=== PATIENT | female | born 1980 | race Caucasian/White ===

== ENCOUNTER → 2016-07-28 | Outpatient (CLI) | payer BC ==
[~2016-07-28] MED LIST: ASTN; FEXO1TAB58 PO; FLUT0.0529
[2016-07-28 14:55] LABS: ALT/SGPT 24 U/L (12-78); AST/SGOT 15 U/L (15-37); BLOOD UREA NITROGEN 10 mg/dl (7-18); BUN/CREATININE RATIO 12.9 (10-20); CALCIUM 8.9 mg/dl (8.5-10.1); CARBON DIOXIDE 31 mmol/L (21-32); CHLORIDE 104 mmol/L (98-107); CREATININE 0.78 mg/dl (0.60-1.20); GLUCOSE 77 mg/dl (70-99); POTASSIUM 3.9 mmol/L (3.5-5.1); SODIUM 140 mmol/L (136-145)
[2016-07-28 14:58] LABS: ALB/GLOB RATIO 1.2 (0.9-2); ALKALINE PHOSPHATASE 95 U/L (45-117)
[2016-07-28 15:20] LABS: LYME DISEASE AB IGG NEG (NEG)
[2016-07-28 15:22] LABS: LYME DISEASE AB IGM NEG (NEG)
[2016-07-31 13:35] LABS: ANAPLASMA PHAGOCYTOPHIL IGG <1:64 (<1:64); ANAPLASMA PHAGOCYTOPHIL IGM <1:20 (<1:20)
== END | disposition home or self-care (01) ==
LOC: C.LAB1850 12:46
PROVIDERS: ATTEND Nurse Practitioner Adult Health
DX: M79.1 Myalgia (principal); B34.9 Viral infection, unspecified; R53.83 Other fatigue

== ENCOUNTER → 2017-06-27 | Outpatient (CLI) | payer OTHER, BC ==
--- NOTE | 2017-06-27 13:23 | DIAGNOSTIC IMAGING REPORT ---
LUMBAR SPINE MIN 4 VIEWS CLINICAL HISTORY: 37 years-old Female presenting with LOW BACK PAIN WITH RADIATION INTO LEFT LEG. TECHNIQUE: Frontal, bilateral oblique, lateral, and coned in lateral views of the lumbar spine were obtained. COMPARISON: None. FINDINGS: No scoliosis. Normal lumbar lordosis. Vertebral bodies maintain normal height and alignment. Intervertebral disc spaces preserved. No degenerative change. No compression deformity. No subluxation. No radiographic evidence of osseous neural foraminal narrowing. No pars defect. IMPRESSION: Normal radiographic examination of the lumbar spine. Electronically signed by: Vel Gaytan M.D. 06/27/2017 1:22 PM Dictated Date/Time: 06/27/2017 1:21 PM
== END | disposition home or self-care (01) ==
LOC: C.RDSM 17:21
PROVIDERS: ATTEND Family Medicine
DX: M54.5 Low back pain (principal)

== ENCOUNTER → 2017-08-02 | Outpatient (CLI) | payer OTHER, BC ==
--- NOTE | 2017-08-02 08:55 | DIAGNOSTIC IMAGING REPORT ---
LEFT FOOT 3 VIEWS HISTORY: M79.672 Left foot pain. COMPARISON: None. FINDINGS: There is no fracture or dislocation. Soft tissues are unremarkable. No radiopaque foreign bodies. Small plantar and posterior calcaneal spurs. IMPRESSION: No fractures. Electronically signed by: Gianni Ramírez M.D. 08/02/2017 8:54 AM Dictated Date/Time: 08/02/2017 8:51 AM
[2017-08-02 10:16] LABS: URIC ACID 3.2 mg/dl (2.6-7.2)
[2017-08-03 14:47] LABS: ANA SCREEN TC 249X POSITIVE (NEGATIVE)
== END | disposition home or self-care (01) ==
LOC: C.RAD 07:49
PROVIDERS: ATTEND Nurse Practitioner Family
DX: M79.672 Pain in left foot (principal)

== ENCOUNTER → 2017-09-12 | Outpatient (CLI) | payer OTHER, BC ==
--- NOTE | 2017-09-12 10:07 | DIAGNOSTIC IMAGING REPORT ---
R HAND MIN 3 VIEWS ROUTINE CLINICAL HISTORY: 37 years-old Female presenting with pain. TECHNIQUE: Frontal, oblique, and lateral views of the right hand were obtained. COMPARISON: None. FINDINGS: No acute fracture or malalignment. No advanced degenerative change. No radiographic soft tissue abnormality. IMPRESSION: No acute osseous injury. Electronically signed by: Vel Gaytan M.D. 09/12/2017 10:06 AM Dictated Date/Time: 09/12/2017 10:05 AM
--- NOTE | 2017-09-12 10:12 | DIAGNOSTIC IMAGING REPORT ---
LEFT HAND 3 VIEWS CLINICAL HISTORY: Left hand pain. FINDINGS: 3 views of the left hand are obtained. No prior studies are available for comparison at the time of dictation. The skeletal structures are well mineralized. No fracture is seen. The joint spaces of the hand are well-maintained. No erosive disease is identified. The overlying soft tissues are within normal limits. IMPRESSION: Unremarkable radiographic assessment of the left hand. Electronically signed by: Bart Cuellar M.D. 09/12/2017 10:11 AM Dictated Date/Time: 09/12/2017 10:07 AM
== END | disposition home or self-care (01) ==
LOC: C.RAD1850 09:41
PROVIDERS: ATTEND Internal Medicine Rheumatology
DX: M77.41 Metatarsalgia, right foot (principal); M79.672 Pain in left foot; R76.8 Other specified abnormal immunological findings in serum

== ENCOUNTER → 2017-11-17 | Outpatient (CLI) | payer OTHER, BC ==
--- NOTE | 2017-11-17 09:07 | DIAGNOSTIC IMAGING REPORT ---
L FOOT MIN 3 VIEWS ROUTINE CLINICAL HISTORY: Tibial sesamoid pain. COMPARISON: Left foot radiograph August 02, 2017. FINDINGS: No fracture within the left foot is identified. Tarsometatarsal joints are intact. There may be slight asymmetric sclerosis of the tibial sesamoid of the left great toe. IMPRESSION: Possible slight asymmetric sclerosis of the tibial sesamoid of the left great toe which raises the possibility of sesamoiditis. Electronically signed by: Jim Perez M.D. 11/17/2017 9:06 AM Dictated Date/Time: 11/17/2017 9:00 AM
== END | disposition home or self-care (01) ==
LOC: C.RAD 08:27
PROVIDERS: ATTEND Podiatrist Foot & Ankle Surgery
DX: M79.672 Pain in left foot (principal)

== ENCOUNTER 2023-07-05 05:37 | Observation (INO) ==
--- NOTE | 2023-06-02 11:45 | PAT Medication Instructions ---
Medication Instructions Date of Service June 02, 2023 Home Medications Medication Instructions Recorded albuterol sulfate 90 mcg/actuation 1 puff inhalation Q4H PRN sob #6.7 04/28/21 aerosol inhaler grams albuterol sulfate 90 mcg/actuation aerosol inhaler 1 puff inhalation Q4H PRN sob duloxetine 60 mg capsule,delayed release 60 mg PO QAM Plexus 1 dose PO UD buspirone 10 mg tablet 10 mg PO BID ipratropium bromide 21 mcg (0.03 %) nasal spray 2 spray intranasal TID PRN sinus congestion STOP taking 2 weeks before surgery Plexus 1 dose PO UD Take morning of surgery With a small sip of water, OTHERWISE NOTHING TO EAT OR DRINK AFTER MIDNIGHT: albuterol sulfate 90 mcg/actuation aerosol inhaler 1 puff inhalation Q4H PRN sob (use if needed; please bring with you to hospital day of surgery if possible) duloxetine 60 mg capsule,delayed release 60 mg PO QAM buspirone 10 mg tablet 10 mg PO BID ipratropium bromide 21 mcg (0.03 %) nasal spray 2 spray intranasal TID PRN sinus congestion (if needed) Take evening before surgery albuterol sulfate 90 mcg/actuation aerosol inhaler 1 puff inhalation Q4H PRN sob (if needed) buspirone 10 mg tablet 10 mg PO BID ipratropium bromide 21 mcg (0.03 %) nasal spray 2 spray intranasal TID PRN sinus congestion (if needed) Other Notes If you have any questions please call us at [phone] or [phone] or [phone] or [phone]
--- NOTE | 2023-06-08 10:24 | Anesthesiology Consultation ---
Date of Service June 08, 2023 Assessment & Plan (1) Encounter for pre-operative examination: - Infectious disease screening: Per assessment on 06/08/23: No known infectious disease contacts or current infectious disease symptoms. No noted recent Covid positive test result. - S/P Left shoulder arthroscopy, labral debridement, clavicle excision (03/26/23): Grade 2 view, MAC#3, ETT 7.5 + regional at [facility] MH precautions used - Family history malignant hyperthermia: Maternal aunt and first cousin have RYR1 malignant hyperthermia susceptibility (incidental finding thru genetic testing, they did not have personal reactions). Patient has never personally been tested. MH precautions used for patient with previous surgeries. > OR made aware of need for MH precautions for upcoming surgery. - Patient scheduled to see PCP prior to upcoming surgery for routine visit- Awaiting office visit note ([facility], appt 06/29). Patient otherwise acceptable risk for surgery. Chart Review Chart Review: Patient seen in Pre Admission Testing Teaching & Discussion Pre-Anesthesia Teaching/Discussion Notes: Instructed NPO after midnight before surgery,except medications with 15 cc of water. Medication instructions provide d according to the PAT guidelines. History Surgery Operation Date: 07/05/23 10:35 Proposed Procedures p C6-C7 Cervical Disc Arthroplasty - Mark Graham MD Height/Weight Height: 5 ft 7 in Weight: 66.6 kg Allergies Allergy/AdvReac Type Severity Reaction Status Date / Time dexamethasone Allergy Severe Hives Verified 06/02/23 07:41 methylprednisolone Allergy Severe Hives Verified 06/02/23 07:41 prednisone Allergy Severe Anaphylaxis Verified 06/06/23 21:32 levofloxacin [From Levaquin] Allergy Unknown Unknown Verified 06/02/23 07:41 Sulfa (Sulfonamide Allergy Unknown Hives Verified 06/06/23 21:32 Antibiotics) Medications Home Medications Medication Instructions Recorded Confirmed Last Taken albuterol sulfate 90 mcg/actuation 1 puff inhalation Q4H PRN sob #6.7 04/28/21 06/02/23 Unknown aerosol inhaler grams duloxetine 60 mg capsule,delayed 60 mg PO QAM 02/04/22 06/02/23 03/28/23 07:15 release Plexus 1 dose PO UD 06/02/23 06/02/23 Unknown buspirone 10 mg tablet 10 mg PO BID 06/02/23 06/02/23 Unknown ipratropium bromide 21 mcg (0.03 2 spray intranasal TID PRN sinus 06/02/23 06/02/23 Unknown %) nasal spray congestion Past Medical History Medical History Allergy Asthma Chronic thoracic back pain Depression History of COVID-19 ~2020: moderate flu-like symptoms, severe aches, severe fatigue > resolved Hx of colonic polyp Polyarthralgia Raynaud's phenomenon Exercise / Class Metabolic Activity II 4-5 Yardwork/Stairs/Walk up hill (one FS- no CP, no SOB) Past Family History Family History Grandfather (Maternal) Myocardial infarction Grandmother (Maternal) Myocardial infarction Father Allergic rhinitis Hypertension Grandmother (Paternal) Hypertension Mother Osteopenia Family/Other Family hx of colon cancer, Onset Age: 50 cousin Aunt Genetic susceptibility to malignant hyperthermia due to RYR1 gene mutation Maternal aunt and first cousin have RYR1 malignant hyperthermia susceptibility (incidental finding thru genetic testing, they did not have personal reactions). Patient has never personally been tested. MH precautions used for patient with previous surgeries. Denies family history of Ovarian cancer Prostate cancer Breast cancer Colorectal cancer Past Surgical History Surgical History Family history of malignant hyperthermia Maternal aunt and first cousin have RYR1 malignant hyperthermia susceptibility (incidental finding thru genetic testing, they did not have personal reactions). Patient has never personally been tested. MH precautions used for patient with previous surgeries. History of bilateral tubal ligation BTL vs bilateral salpingectomy -> tbd 06/09/23 at [facility] History of colonoscopy History of cryosurgery cervix S/P arthroscopy of shoulder Left shoulder arthroscopy, labral debridement, clavicle excision (03/26/23): Grade 2 view, MAC#3, ETT 7.5 + regional at [facility] MH precautions used S/P endometrial ablation tbd 06/09/23 at [facility] S/P LASIK surgery PRK S/P wisdom tooth extraction History of PONV No Hx of PONV and No Hx of Motion Sickness Social History Smoking Status: Never smoker Do You Dip or Chew Tobacco: No Hx Alcohol Use: Yes alcohol intake frequency: a few times a month Hx Substance Use: No substance use type: does not use Review of Systems Patient denies chest pain, shortness of breath, dyspnea on exertion, fever, chills, cough, wheezing, palpitations. Physical Exam Vital Signs VITALS BP 117/74 P 87 TEMP 98.0 SP02 97%RA RESP 18 PHYSICAL Full cervical extension range of motion. Full TMJ range of motion. TMD 3 finger breaths Mallampati Score 1 Dentition: intact Lungs: clear throughout to auscultation Cardiac: regular rate and rhythm, no murmurs noted Spine: normal Extremities: no LE edema Lab Results Anesthesia Preop Results Results Anesthesia Widget: WBC 4.16 K/ul (4.8-10.8) L 06/08/23 Hgb 13.0 g/dl (12.0-16.0) 06/08/23 Hct 39.0 % (37.0-47.0) 06/08/23 Plt 351 K/uL (130-400) 06/08/23 PT 10.9 Seconds (9.0-12.0) 06/08/23 PTT 28 Seconds (21-31) 06/08/23 INR 1.0 (0.9-1.1) 06/08/23 Blood Type O Negative 06/08/23 Antibody Screen NEGATIVE 06/08/23 Testing Laboratory Results *Surgeon's office made aware of low WBC* Electrocardiogram Date: 06/08/23 NSR at 83bpm. NS STA.
[2023-07-05] MEDS: LR 60ML/HR IV SCH (06:16)
[2023-07-05] MEDS: LR 15ML/HR IV SCH (06:16)
[2023-07-05] MEDS ORDERED: HYDROmorphone INJ 2 MG/ML SYR/VIAL IV PRN (06:45)
[2023-07-05] MEDS ORDERED: ePHEDrine sulfate 50 MG/ML AMP IV PRN (06:45)
[2023-07-05] MEDS ORDERED: ONDANSETRON INJ 2 MG/ML 2 ML VIAL IV PRN ×2 (06:45→11:45)
[2023-07-05] MEDS ORDERED: ATROPINE SULFATE 0.1 MG/ML 10ML SYR IV PRN (06:45)
[2023-07-05] MEDS ORDERED: DROPERIDOL 5 MG/2 ML VIAL IV PRN (06:45)
[2023-07-05] MEDS ORDERED: fentaNYL citrate PF 100 MCG/2 ML VIAL IV PRN (06:45)
[2023-07-05] MEDS ORDERED: fentaNYL citrate PF 100 MCG/2 ML VIAL ONE ×3 (06:51→09:48)
[2023-07-05] MEDS ORDERED: MIDAZOLAM HCL 1 MG/ML 2ML VIAL ONE ×2 (06:51→08:08)
[2023-07-05] MEDS ORDERED: PROPOFOL IV EMULSION 10 MG/ML 100 ML VIAL IV ONE (06:54)
--- NOTE | 2023-07-05 07:24 | History & Physical Bridge Note ---
Date of Service July 05, 2023 History & Physical Bridge Note I have examined the patient, reviewed the History & Physical and in the interval since the performance of the History & Physical I have noted the following changes of clinical significance: no changes noted
[2023-07-05] MEDS ORDERED: LIDOCAINE 2% 2 ML VIAL/AMP(20MG/ML) INFIL ONE (08:00)
[2023-07-05] MEDS ORDERED: PHENYLEPHRINE 100MCG/ML 10ML SYR IV ONE (08:00)
[2023-07-05] MEDS ORDERED: ROCURONIUM BROMIDE 10 MG/ML 5 ML VIAL IV ONE ×2 (08:00→08:29)
[2023-07-05] MEDS ORDERED: PROPOFOL IV EMULSION 10 MG/ML 20 ML VIAL IV ONE (08:00)
[2023-07-05] MEDS ORDERED: ONDANSETRON INJ 2 MG/ML 2 ML VIAL ONE (08:00)
[2023-07-05] MEDS ORDERED: SUGAMMADEX SODIUM 200 MG/2 ML VIAL IV ONE (08:00)
[2023-07-05] MEDS: ceFAZolin 3000MG 3,000 MG/72.5 ML BAG IV SCH (08:39)
[2023-07-05] MEDS: THROMBIN 5000 UNITS KIT ONE (08:48)
[2023-07-05] MEDS: GELATIN SPONGE 12-7MM ONE (08:55)
--- OUTSIDE RECORDS SUMMARY | 2023-07-05 09:41 | External Medical Summary | Summary of Care ---
Author Name Unknown Organization [facility] Address [address] [facility] [place] [address] Phone [phone] Care Team Providers Care Classroom Monitor Name Role Phone Estrella Elizabeth MD Primary Care Provider Encounter Details Date Type Department Care Team (Late st Contact Info) Description 06/30/2023 Orders Only [facility] [address] [place] [id number] Lavinia Lopez CRNP [address] [place] [address] Allergies Active Allergy Reactions Criticality Noted Date Comments Amoxicillin Diarrhea,Nausea/vomiting 05/18/2011 Dexamethasone 05/21/2022 Methylprednisolone 05/21/2022 Prednisone 01/30/2007 Throat tightness Sulfa Antibiotics High 07/31/2001 rash documented as of this encounter (statuses as of 06/30/2023) Medications Medication Sig Dispensed Refills Start Date End Date Status oxyCODONE-Acetamin ophen 5-325 MG Oral Tablet (Percocet) Take 1 Tablet by mouth every 4 hours as needed for breakthrough Pain 20 Tablet 0 06/09/2023 Active Ibuprofen 600 MG Oral Tablet (Motrin) Take 1 Tablet by mouth in the morning and 1 Tablet at noon and 1 Tablet before bedtime. With meals.. 30 Tablet 0 06/09/2023 Active busPIRone HCl 10 MG Oral Tablet (Buspar) 0 06/13/2023 Active Diclofenac Sodium 75 MG Oral Tablet Delayed Release (Voltaren) Take 1 Tablet by mouth in the morning and 1 Tablet before bedtime. 0 Active DULoxetine HCl 60 MG Oral Capsule Delayed Release Particles (Cymbalta) Take 1 Capsule by mouth in the morning. 0 Active traZODone 12.5 MG OR TABS Take 5 mg by mouth every night at bedtime. 0 Active Estradiol 0.05 MG/24HR Transdermal Patch Twice Weekly Apply one patch to trunk, abdomen or buttocks, change twice per week. 24 Patch 1 06/28/2023 Active Progesterone 200 MG Oral Capsule (Prometrium) Take 1 Capsule by mouth every night at bedtime. 90 Capsule 1 06/28/2023 Active documented as of this encounter (statuses as of 06/30/2023) Active Problems Problem Noted Date Diagnosed Date Raynaud's disease without gangrene 09/22/2022 Generalized osteoarthritis 09/22/2022 Nonallergic rhinitis 02/20/2015 Mild persistent asthma 11/15/2014 Headache 07/03/2013 Overview: ICD-10 update of inactive term Allergic rhinitis 05/18/2011 Recurrent acute sinusitis 05/18/2011 Dysfunction of eustachian tube 05/18/2011 Postnasal drip 05/18/2011 BENIGN NEOPLASM LG BOWEL 11/16/2005 ADVANCE DIRECTIVE INFORMATION 05/01/2005 Overview: No, Advance Directive brochure offered , patient declined. Migraine variant 02/11/2004 Dysmenorrhea Irritable bowel syndrome documented as of this encounter (statuses as of 06/30/2023) Resolved Problems Problem Noted Date Diagnosed Date Resolved Date Intermittent asthma with rel iever use up to twice per week 05/18/2011 11/15/2014 Normal , first 02/26/200904/26 Overview: Patient received H1N1 vaccine. 02/26/2009 Vero Vaz RN Rh negative, antepartum 01/31/200912/25 Overview: Negative bloodtype, rhogam with spotting and at 28 weeks ICD-10 update of inactive term Other allergic rhinitis 05/01/200504/26 Overview: ICD-10 update of inactive term Asthma with severity to be determined 04/05/2005 05/18/2011 Overview: ICD-10 update of inactive term Chronic rhinitis 02/11/2004 05/18/2011 documented as of this encounter (statuses as of 06/30/2023) Immunizations Name Administration Dates Next Due COVID-19 mRNA, LNP-s, No Pre serve, 2-Dose Series (Pfizer) 04/23/2021,10/22/2020,09/24/2020 H1N1 2009 Influenza, IM 02/26/2009 Pneumococcal Polysaccharide PPV23 (Pneumovax) 12/27/2008(Deferred: Patient Refused) Seasonal Influenza, Split, I IV3, With Preserve, Inj 02/07/2016,01/23/2009 TDAP (age 11 and older)(Adacel) 12/27/2008(Defer red: Patient Refused) documented as of this encounter Social History Tobacco Use Types Packs/Day Years Used Date Smoking Tobacco: Never Smokeless Tobacco: Never Comments:no passive smoke Alcohol Use Standard Drinks/Week Comments No 0 (1 standard drink = 0.6 oz pur e alcohol) rare Hunger Vital Sign Answer Date Recorded Within the past 12 months, y ou worried that your food would run out before you got the money to buy more. Never true 01/18/20 23 Within the past 12 months, t he food you bought just didn't last and you didn't have money to get more. Never true 01/17/2023 Sex and Gender Information Value Date Recorded Sex Assigned at Female 08/10/2021 2:56 PM EDT Gender Identity Female 08/10/2021 2:56 PM EDT Sexual Orientation Straight 08/10/2021 2: 56 PM EDT Job Start Date Occupation Industry Not on file Not on file Not on file documented as of this encounter Plan of Treatment Upcoming Encounters Date Type Department Care Team (Late st Contact Info) Description 09/16/2023 11:00 AM EDT Telemedicine Gynecology/Obstetrics Bernard[facility] Samuels [address] [place] [address] Lavinia Lopez CRNP [address] [place] [id number] 09/23/2023 3:20 PM EDT Office Visit Rheumatology [facility] [address] [place], [place] [address] Milton Wills MD [address] [employer] [place] [address] Health Maintenance Due Date Last Done Comments Lipid Panel 1978 Pneumococcal Vaccine: Pediatrics (0 to 5 Years) and At-Risk Patients (6 to 64 Years) (1 of 2 - PCV) 01/22/1984 Depression Screening 1990 Hepatitis C Screening 01/22/1996 DTaP,Tdap,and Td Vaccines (1 - Tdap) 1997 Hepatitis B (1 of 3 - 19+ 3-dose series) 1997 HPV/Co-Test 01/22/2008 Cervical Cancer Screening 02/27/2012 Pap Smear 02/27/2012 02/26/2009, 04/26, 05/18/2007, Additional history exists Mammogram 2018 06/30/2023 COVID-19 Vaccine ( season) 2022 04/23/2021, 10/22/2020, 10/01/2020, Additional history exists Influenza Vaccine (FLU shot) (#1) 2022 02/07/2016, 02/26/2009, 01/23/2009 Cologuard 2023 Colonoscopy 2023 Colorectal Cancer Screening 2023 Fecal Occult Blood Test 2023 Sigmoidoscopy 2023 GARDASIL-HPV IMMUNIZATION SERIES Aged Out No longer eligible based on patient's age to complete this topic MENINGOCOCCAL (MENACTRA/MENVEO) Aged Out No longer eligible based on patient's age to complete this topic documented as of this encounter Medical Devices Not on filedocumented as of this encounter Procedures Procedure Name Priority Date/Time Associated Diagnosis Comments MAMMOGRAM SCREENING SHAHRIAR BILATERAL Routine 06/30/2023 documented in this encounter Results * MAMMOGRAM SCREENING SHAHRIAR BILATERAL (06/30/2023) Anatomical Region Laterality Modality Breast Bilateral Other 06/30/2023 History Per Patient RAD MAMMOGRAPHY documented in this encounter Care Teams Classroom Monitor Relationship Specialty Start Date End Date Estrella Elizabeth MD [address] [place] [address] PCP - General Family Medicine 07/15/16 documented as of this encounter
[2023-07-05] MEDS: VANCOMYCIN HCL 1000MG/20ML VIAL ONE (11:06)
--- NOTE | 2023-07-05 11:42 | Post Operative Brief Note ---
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
[2023-07-05] MEDS ORDERED: METOCLOPRAMIDE HCL INJ 5 MG/ML 2 ML VIAL IV PRN (11:45)
[2023-07-05] MEDS ORDERED: bisacodyL 10 MG SUPP PR PRN (11:45)
[2023-07-05] MEDS ORDERED: hydrOXYzine HCl 25 MG TAB PO PRN (11:45)
[2023-07-05] MEDS ORDERED: DO NOT ADMINISTER PNEUMOCOCCAL VACCINE PRN (11:45)
[2023-07-05] MEDS ORDERED: ACETAMINOPHEN 1,000 MG/100 ML VIAL IV PRN (11:45)
[2023-07-05] MEDS ORDERED: DO NOT ADMINISTER FLU VACCINE PRN (11:45)
[2023-07-05] MEDS ORDERED: ONDANSETRON 4 MG OD TAB PO PRN (11:45)
[2023-07-05] MEDS ORDERED: FAMOTIDINE 20 MG TAB PO PRN (11:45)
[2023-07-05] MEDS ORDERED: oxyCODONE/ACETAMINOPHEN 5mg/325mg TAB PO PRN (11:45)
[2023-07-05] MEDS ORDERED: LORazepam 0.5 MG TAB PO PRN (11:45)
[2023-07-05] MEDS ORDERED: PROMETHAZINE HCL 12.5 MG in SODIUM CHLORIDE 0.9% 50 ML IV PRN (11:45)
[2023-07-05] MEDS ORDERED: diphenhydrAMINE Capsule 25 MG CAP PO PRN (11:45)
[2023-07-05] MEDS ORDERED: NALOXONE HCL 0.4 MG/1 ML VIAL/CARP IV PRN (11:45)
[2023-07-05] MEDS ORDERED: SOD PHOSPHATE/SOD BIPHOSPHATE ENEMA 132 ML BTL PR PRN (11:45)
[2023-07-05] MEDS ORDERED: LORazepam 0.5 MG in SYRINGE 0.25 ML IV PRN (11:45)
[2023-07-05] MEDS ORDERED: RACEPINEPHRINE 2.25% NEBU SOLN 0.5 ML VIAL INH PRN (11:45)
[2023-07-05] MEDS ORDERED: dexAMETHasone 8 MG in SYRINGE 0 ML IV PRN (11:45)
[2023-07-05] MEDS ORDERED: ALUMINUM/MAGNESIUM SUSP 30 ML UDC PO PRN (11:45)
[2023-07-05] MEDS ORDERED: MAGNESIUM HYDROXIDE SUSP 30 ML UDC PO PRN (11:45)
--- NOTE | 2023-07-05 13:05 | Fluoroscopy Report ---
FL cervical 2-3V CLINICAL HISTORY: C6-C7 cervical disc arthroplasty COMPARISON STUDY: Cervical spine radiographs 06/16/2023 FLUOROSCOPY TIME: 154.5 seconds FLUOROSCOPY IMAGES: 23 EXPOSURE DOSE: 39.87 mGy FINDINGS: Endotracheal tube is noted. Discectomy changes are noted at what is labeled the C6-C7 level . No acute fracture, malalignment or unexpected opaque foreign body identified. Mild multilevel spond ylotic spurring of the cervical spine. IMPRESSION: Fluoroscopic assistance as above. ACT 112: Negative or not required by law. Electronically signed by: Juan M Smith M.D. 07/05/2023 1:04 PM
[2023-07-05] MEDS ORDERED: ALBUTEROL HFA 8 GM INHALER INH PRN (13:25)
[2023-07-05] MEDS ORDERED: PLEXUS PO SCH (13:25)
[2023-07-05] MEDS: SCOPOLAMINE 1 MG TDSY TD ONE (13:42)
[2023-07-05] MEDS: FLOSEAL HEMOSTATIC MATRIX 5ML TOP ONE (13:43)
[2023-07-05] MEDS: LACTATED RINGER'S 1,000 ML IV SCH (13:45)
[2023-07-05] MEDS: ACETAMINOPHEN 500 MG TAB PO PRN (16:03)
[2023-07-05] MEDS: ceFAZolin 1000MG 1,000 MG/7.5 ML SYR IV SCH (18:08)
[2023-07-05] MEDS: DOCUSATE SODIUM/SENNA 50/8.6MG TAB PO SCH (20:07)
[2023-07-05] MEDS: busPIRone 15 MG TAB PO SCH (20:07)
[2023-07-05] MEDS: MONTELUKAST SODIUM 10 MG TABLET PO SCH (20:07)
[2023-07-06] MEDS: HYDROmorphone INJ 0.5 MG/0.5 ML SYR IV PRN (02:37)
[2023-07-06] MEDS: POLYETHYLENE (MIRALAX) 17 GM PACK PO SCH (05:50)
[2023-07-06] MEDS: DULoxetine HCL 60 MG CAP PO SCH (08:32)
--- NOTE | 2023-07-06 10:03 | Orthopedic Progress Note ---
Date of Service July 06, 2023 Assessment & Plan (1) Status post cervical disc replacement: Patient was seen and evaluated today by Dr. Graham. Overall, she is doing quite well today with good pain control. She will be seen by physical therapy later this morning to work on range of motion exercises. She can be discharged home later this morning pending physical therapy evaluation. She will follow-up with Dr. Graham in 2 weeks for postoperative management. Pt seen and examined, has improvement in left arm symptom, DC home today. Subjective . Carmelita was seen and evaluated this morning resting comfortably at bedside in no apparent distress. She notes that her neck is mildly sore but overall doing well. She has been up and out of bed with no significant issues. She has yet to work with physical therapy this morning. She denies any other concerns today. Review of Systems All systems reviewed & are unremarkable except as noted in HPI & below. Physical Exam . On physical examination of the cervical spine/neck dressing is in place, clean, dry and intact. Normal motor and sensation intact bilaterally to the upper extremity. +2 radial pulse. Less than 2-second capillary refill. Normal sensation. Neurovascular intact. Results & Data Results & Data Laboratory Results . Diagnostic Findings . PG Care Time/CCT Total # of Minutes Spent Total Time Spent with Patient: Total time spent is greater than 50% in coordination of care (as documented) at patient's floor/unit and/or counseling patient: Coding Level of Care Code 92262 Post Operative Follow-Up Diagnoses Status post cervical disc replacement Z98.890
--- NOTE | 2023-07-06 10:06 | Discharge Summary ---
Date of Service July 06, 2023 Principal Diagnosis Same as "Discharge Diagnosis" noted below under Discharge Instructions. Discharge Exam . On physical examination of the cervical spine/neck dressing is in place, clean, dry and intact. Normal motor and sensation intact bilaterally to the upper extremity. +2 radial pulse. Less than 2-second capillary refill. Normal sensation. Neurovascular intact. Discharge Data Procedures Performed Operation Date: 07/05/23 07:15 Actual Procedures p C6-C7 Cervical Disc Arthroplasty - Mark Graham MD Ordered Studies 07/05/23 07:00 FL cervical 2-3V Routine Hospital Course (1) Status post cervical disc replacement: On 07/05/2023, Carmelita arrived at [facility] and underwent a C6-C7 cervical disc arthroplasty performed by Dr. Graham with no complications. She had a general anesthetic. Postoperatively, she was transferred to the PACU for immediate postoperative management and then transferred to the general orthopedic floor in stable condition. Her hospital course was uneventful. On postoperative day 1, her vital signs were stable and her pain was well- controlled. She participated well with physical therapy working on range of motion exercises. She was then discharged home in stable condition. She will follow-up with Dr. Graham in 2 weeks for postoperative management. PG Care Time/CCT Total # of Minutes Spent Total Time Spent with Patient: Total time spent is greater than 50% in coordination of care (as documented) at patient's floor/unit and/or counseling patient: Discharge Plan Discharge Items Patient Disposition: Home - Self-Care Reason For Visit: Level C6-C7 Disorder of Intervertebral Disc with R Discharge Diagnosis: Same Activity: Per Instructions section Non-emergency contact: Surgeon Call non-emergency contact if: your temperature is above 101.5, your wound has increased redness, your wound has increased drainage and your wound pain has increased Follow-up/Referrals: Gio Fajardo III, CRNP [Primary Care Provider] - Diet: Regular Addtl Attending Provider Instructions: Please follow Dr. Graham Post Operative Instructions that were given in the office upon scheduling surgery. -Dressings will be changed prior to discharge. -Keep Surgical site dry for the next 3 days. -May shower after 3 days with no soaking of the surgical site -May leave surgical site open to air if dry. -Cover the surgical site with a bandage if draining or getting caught on clothes. -Take it easy for the next 2 weeks. (Ex: No Lifting, running, bending, or twisting, etc.). -You will F/u with Dr. Graham in 2 weeks for postoperative care. -If any questions or concerns in the mean time, Reach out to [facility] at [phone] Pending Studies at Discharge: No Stand-Alone Forms: My [facility] [employer] Pain - Opioid Pain Management, Smoking Cessation Medications and DC Order Prescriptions: New oxycodone 5 mg tablet 5 mg PO Q6H PRN (Reason: pain) Qty: 28 0RF Continued duloxetine 60 mg capsule,delayed release(DR/EC) 60 mg PO QAM albuterol sulfate 90 mcg/actuation HFA aerosol inhaler 1 puff INH Q4H PRN (Reason: sob) Qty: 6.7 5RF buspirone 15 mg tablet 15 mg PO BID Qty: 180 3RF montelukast [Singulair] 10 mg tablet 10 mg PO QPM Qty: 90 3RF Plexus 1 dose PO UD ipratropium bromide 21 mcg (0.03 %) spray,non-aerosol 2 spray intranasal TID PRN (Reason: sinus congestion) Rx Instructions: administer into each nostril Discharge Orders: Discharge Order (Routine); Ordered 07/06/23 Ordered By: Juan M Osorio/Other Patient Handouts: Cervical Spine Tx Admission Data Admit Date/Time: 07/05/23 11:45 Attending Provider: Mark Graham Admit Provider: Mark Graham Primary Care Provider: Gio Fajardo III Other Interventions: Discharge Summary Assessment (RN) Last Done: 07/06/23 09:29
--- NOTE | 2023-07-06 11:44 | Operative Report ---
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 C6-7 anterior cervical decompression, artificial disc replacement, Moby C 15 x 17 x 5 mm ([id number]) Patient was taken to the operating room and after adequate anesthesia was carefully positioned supine on the OSI flat top table. Positioning was then performed along with a preprepped of the anterior cervical region, fluoroscopy was brought in and I marked for the location for the incision. Prep and drape was performed, I began the procedure with a left-sided approach to C6-7, advanced down along the medial border of the sternocleidomastoid, and then down onto the anterior aspect of the cervical spine. Position was then confirmed fluoroscopically, and I then mobilized the tissues at C6 and C7 to then insert the distractor pins under fluoroscopic control. With the pins in place, I then set the retractors and then began the procedure with an anterior incision of the annulus followed by a thorough discectomy. This included removal of cartilage from the endplates, the disc material out to the uncinates on both sides to the posterior aspect of the interspace. I then was able to mobilize and elevate the disc space to his improved height, I used a high-speed bur to move along the posterior aspect of the spondylosis. Combination of curettes and Kerrison punches were then used to mobilize the posterior annulus and posterior longitudinal ligament and then decompress the canal along with removal spondylosis. This process continued where I then also investigated for the area of the disc protrusion out to the uncinate region. Once I felt adequate decompression of been performed and removal of the disc protrusion as far as safely could be performed towards the foraminal region, I then utilized the spacers/trials and selected the size artificial disc replacement as noted. This particular device was then obtained, I then tapped it into position using fluoroscopic control for excellent position on AP and lateral views. Distractor pins were then removed followed by applying Gelfoam and bone wax to the insertion sites. Final inspection revealed no issues, the operative site was irrigated, vancomycin powder was placed, I then closed the operative site using 3-0 interrupted Vicryl sutures in 2 layers followed by sterile dressing. The patient tolerated procedure well was taken recovery room satisfactory condition. I attest to the content of the Intraoperative Record and any orders documented therein. Any exceptions are noted below.
--- NOTE | 2023-07-08 06:30 | Anesthesiology Progress Note ---
Date of Service July 08, 2023 Anesthesia Post Procedure Pain Intensity Neck: Pain Intensity: 5 Transfer of Care Handoff Completed per policy Notes Mental Status: alert / awake / arousable and participated in evaluation Patient Amnestic to Procedure: Yes Nausea / Vomiting: adequately controlled Pain: adequately controlled Airway Patency, RR, SpO2: stable & adequate BP & HR: stable & adequate Hydration State: stable & adequate Anesthetic Complications: no major complications apparent and Pt Satisfied with anesthetic care
== END 2023-07-06 11:06 | disposition home or self-care (01) ==
LOC: ASU 05:37 → 3E 05:37